=== PATIENT | male | born 2000 | race African-American/Black ===

== ENCOUNTER 2020-10-27 05:07 | Emergency (ER) | payer MEDICAID, SELFPAY | END 2020-10-27 05:45 | disposition home or self-care (01) | LOC: CSHERS 05:07 | DX: J06.9 Acute upper respiratory infection, unspecified (principal); J45.909 Unspecified asthma, uncomplicated; Z86.16 Personal history of COVID-19; Z79.899 Other long term (current) drug therapy | CPT/HCPCS: 99283 ==